=== PATIENT | female | born 1955 | race Caucasian/White ===

== ENCOUNTER → 2016-12-12 | Outpatient (CLI) | payer BC ==
[2016-12-12 13:23] LABS: ALT 29 U/L (9-52); AST 22 U/L (14-36); Alkaline Phosphatase 74 U/L (38-126); Anion Gap 11 mmol/L; Blood Urea Nitrogen 25 mg/dL (7-17); CH 31.7; CHCM 34.6; Calcium 9.6 mg/dL (8.4-10.2); Carbon Dioxide 31 mmol/L (22-30); Chloride 102 mmol/L (98-107); Cholesterol 217 mg/dL (<200); Glucose 96 mg/dL (74-99); HCT 40.5 % (34.0-46.0); HDL Cholesterol 61 mg/dL (40-60); HDW 2.54; HGB 13.7 gm/dL (11.4-16.0); MCH 31.2 pg (25.0-35.0); MCHC 33.8 g/dL (31.0-37.0); MCV 92.1 fL (80.0-100.0); Mean Platelet Volume 7.8; Non-African American GFR(MDRD) >60 (>60 ml/min/1.73 sqM); Potassium 4.2 mmol/L (3.5-5.1); RDW 12.4 % (11.5-15.5); Sodium 144 mmol/L (137-145); Total Bilirubin 0.7 mg/dL (0.2-1.3); Total Protein 7.1 g/dL (6.3-8.2); Triglycerides 72 mg/dL (<150)
[2016-12-12 14:10] LABS: Hepatitis C Virus IgG Index 0.01
[2016-12-12 14:11] LABS: Hepatitis C Virus IgG Ab Negative (Negative)
== END | disposition home or self-care (01) ==
LOC: LABWHC1 12:40
PROVIDERS: ATTEND Family Medicine
DX: I10 Essential (primary) hypertension (principal); E03.9 Hypothyroidism, unspecified; Z13.9 Encounter for screening, unspecified; E55.9 Vitamin D deficiency, unspecified
CPT/HCPCS: 36415; 80053; 80061; 82306; 84439; 84443; 84481; 85027; 86803

== ENCOUNTER → 2017-12-12 | Outpatient (CLI) | payer BC ==
--- NOTE | 2017-12-13 08:11 | MM ---
Reason for exam: clinical finding. Last mammogram was performed 1 year and 5 months ago. History: Patient is postmenopausal and is nulliparous. Took hormonal contraceptives for 8 years beginning at age 18. Physical Findings: Nurse did not find any significant physical abnormalities on exam. MG 3D Diag Mammo W/Cad RUTH Bilateral CC and MLO view(s) were taken. Prior study comparison: July 14, 2016, bilateral MG screening mammo w CAD. September 09, 2014, bilateral MG screening mammo w CAD. There are scattered fibroglandular densities. No significant new findings when compared with previous films. These results were verbally communicated with the patient and result sheet given to the patient on 12/12/17. ASSESSMENT: Negative, BI-RAD 1 RECOMMENDATION: Routine screening mammogram of both breasts in 1 year.
== END | disposition home or self-care (01) ==
LOC: RADMAMWWP 15:29
PROVIDERS: ATTEND Family Medicine
DX: N63.21 Unspecified lump in the left breast, upper outer quadrant (principal)
CPT/HCPCS: 77066; G0279

== ENCOUNTER → 2018-01-17 | Outpatient (CLI) | payer BC ==
[2018-01-17 13:00] LABS: HCT 40.6 % (34.0-46.0); HGB 13.5 gm/dL (11.4-16.0); MCH 30.3 pg (25.0-35.0); MCHC 33.4 g/dL (31.0-37.0); MCV 90.9 fL (80.0-100.0); Mean Platelet Volume 7.8; Platelet Count 248 k/uL (150-450); RBC 4.46 m/uL (3.80-5.40); RDW 12.8 % (11.5-15.5); WBC 7.8 k/uL (3.8-10.6)
[2018-01-17 13:06] LABS: Albumin 4.2 g/dL (3.5-5.0); Calcium 9.8 mg/dL (8.4-10.2); Potassium 3.9 mmol/L (3.5-5.1); Total Bilirubin 0.5 mg/dL (0.2-1.3); Total Protein 6.9 g/dL (6.3-8.2)
[2018-01-17 13:21] LABS: T4, Free (Free Thyroxine) 1.09 ng/dL (0.78-2.19)
== END | disposition home or self-care (01) ==
LOC: LABWHC1 11:42
PROVIDERS: ATTEND Family Medicine
DX: Z00.00 Encounter for general adult medical examination without abnormal findings (principal); E55.9 Vitamin D deficiency, unspecified; E03.9 Hypothyroidism, unspecified
CPT/HCPCS: 36415; 80053; 80061; 82306; 84439; 84443; 84481; 85027

== ENCOUNTER → 2019-10-07 | Outpatient (CLI) | payer BC ==
[2019-10-07 15:52] LABS: HCT 40.7 % (34.0-46.0); HGB 13.6 gm/dL (11.4-16.0); MCH 31.3 pg (25.0-35.0); MCHC 33.5 g/dL (31.0-37.0); MCV 93.5 fL (80.0-100.0); Mean Platelet Volume 7.6; Platelet Count 225 k/uL (150-450); RBC 4.35 m/uL (3.80-5.40); RDW 12.6 % (11.5-15.5)
[2019-10-07 15:55] LABS: Appearance,Urine Clear (Clear); Bilirubin,Urine Negative (Negative); Blood,Urine Negative (Negative); Color,Urine Yellow; Glucose,Urine (UA) Negative (Negative); Ketones,Urine Negative (Negative); Leukocyte Esterase,Urine Large (Negative); Mucus,Urine Occasional /hpf; Nitrite,Urine Negative (Negative); PH, Urine 5.5 (5.0-8.0); Protein,Urine Negative (Negative); RBC,Urine <1 /hpf (0-5); Specific Gravity,Urine 1.025 (1.001-1.035); Squamous Epithelial Cell,Urine 3 /hpf (0-4); Urobilinogen,Urine <2.0 mg/dL (<2.0); WBC,Urine 2 /hpf (0-5)
[2019-10-08 01:51] LABS: African American GFR (CKD) 78.3 (60.0-200.0); Albumin 4.2 g/dL (3.80-4.90); Albumin/Globulin Ratio 2.1 (1.60-3.17); Anion Gap 5.9 mmol/L (4.00-12.00); BUN/Creat Ratio 16.67 Ratio (12.00-20.00); Calcium 9.4 mg/dL (8.7-10.3); Carbon Dioxide 28.1 mmol/L (21.6-31.8); Chol/HDL Ratio 4.72; LDL Cholesterol,Calculated 175.6 mg/dL (0.0-131.0); Non-African American GFR(CKD) 67.6 (60.0-200.0); Potassium 4.3 mmol/L (3.5-5.5); Total Bilirubin 0.5 mg/dL (0.3-1.2); Total Protein 6.2 g/dL (6.2-8.2); VLDL Calculation 21.4 mg/dL (5.00-40.00)
[2019-10-08 01:59] LABS: T4, Free (Free Thyroxine) 1.2 ng/dL (0.80-1.80)
== END | disposition home or self-care (01) ==
LOC: LABWHC1 15:12
PROVIDERS: ATTEND Family Medicine
DX: Z00.00 Encounter for general adult medical examination without abnormal findings (principal); E03.9 Hypothyroidism, unspecified
CPT/HCPCS: 36415; 80053; 80061; 81001; 84439; 84443; 84481; 85027

== ENCOUNTER → 2020-08-03 | Outpatient (CLI) | payer BC ==
[2020-08-03 16:17] LABS: HCT 40.7 % (34.0-46.0); HGB 13.4 gm/dL (11.4-16.0); MCH 30.8 pg (25.0-35.0); MCHC 32.9 g/dL (31.0-37.0); MCV 93.6 fL (80.0-100.0); Mean Platelet Volume 7.7; Platelet Count 240 k/uL (150-450); RBC 4.35 m/uL (3.80-5.40); RDW 13.3 % (11.5-15.5); WBC 9.9 k/uL (3.8-10.6)
[2020-08-04 02:15] LABS: African American GFR (CKD) 77.8 (60.0-200.0); Albumin 4.4 g/dL (3.80-4.90); Albumin/Globulin Ratio 1.83 (1.60-3.17); Anion Gap 8.7 mmol/L (4.00-12.00); BUN/Creat Ratio 18.89 Ratio (12.00-20.00); Calcium 9.6 mg/dL (8.7-10.3); Carbon Dioxide 28.3 mmol/L (21.6-31.8); Chol/HDL Ratio 4.76; Globulin 2.4 g/dL (1.6-3.3); LDL Cholesterol,Calculated 172.2 mg/dL (0.0-131.0); Non-African American GFR(CKD) 67.1 (60.0-200.0); Potassium 4.7 mmol/L (3.5-5.5); Total Bilirubin 0.4 mg/dL (0.3-1.2); Total Protein 6.8 g/dL (6.2-8.2); VLDL Calculation 19.8 mg/dL (5.00-40.00)
== END | disposition home or self-care (01) ==
LOC: LABWHC1 15:39
PROVIDERS: ATTEND Family Medicine
DX: Z00.00 Encounter for general adult medical examination without abnormal findings (principal); E03.9 Hypothyroidism, unspecified
CPT/HCPCS: 36415; 80053; 80061; 84439; 84443; 84481; 85027

== ENCOUNTER 2021-03-24 | Emergency (ER) | payer BC | END 2021-03-24 14:57 | disposition home or self-care (01) | CPT/HCPCS: 36415; 71046; 80053; 83735; 84484; 85025; 85610; 85730; 93005; 99285 ==

== ENCOUNTER → 2021-12-17 | Outpatient (CLI) | payer BC ==
[2021-12-17 23:17] LABS: ALT 17 U/L (8-44); AST 18 U/L (13-35); African American GFR (CKD) 72.3 (60.0-200.0); Albumin/Globulin Ratio 1.61 (1.60-3.17); Alkaline Phosphatase 101 U/L (41-126); BUN/Creat Ratio 13.68 Ratio (12.00-20.00); Calcium 9.3 mg/dL (8.7-10.3); Chloride 104 mmol/L (96-109); Globulin 2.5 g/dL (1.6-3.3); Glucose 102 mg/dL (70-110); LDL Cholesterol,Calculated 183.9 mg/dL (0.0-131.0); Non-African American GFR(CKD) 62.4 (60.0-200.0); Potassium 3.8 mmol/L (3.5-5.5); Sodium 142 mmol/L (135-145); Total Protein 6.5 g/dL (6.2-8.2)
[2021-12-17 23:46] LABS: Basophils # (A) 0.04 X 10*3/uL (0.00-0.10); Basophils % (A) 0.6 %; Eosinophils # (A) 0.17 X 10*3/uL (0.04-0.35); Eosinophils % (A) 2.4 %; HCT 42.6 % (37.2-46.3); HGB 13.7 g/dL (12.0-15.0); Immature Grans, Automated 0.4 %; Lymphocytes # (A) 1.92 X 10*3/uL (0.90-5.00); Lymphocytes % (A) 27.6 %; MCH 29.9 pg (27.0-32.0); MCHC 32.2 g/dL (32.0-37.0); Mean Platelet Volume 11.1 fL (9.5-12.2); Monocytes # (A) 0.61 X 10*3/uL (0.20-1.00); Monocytes % (A) 8.8 %; NRBC Per 100 WBC 0 /100 WBCS (0.0-0.0); Neutrophils # (A) 4.19 X 10*3/uL (1.80-7.70); Neutrophils % (A) 60.2 %; Platelet Count 262 X 10*3/uL (140-440); RBC 4.58 X 10*6/uL (4.10-5.20); RDW 12.7 % (11.5-14.5); WBC 6.96 X 10*3/uL (4.50-10.00)
== END | disposition home or self-care (01) ==
LOC: LABWHC1 14:57
PROVIDERS: ATTEND Family Medicine
DX: I10 Essential (primary) hypertension (principal); E78.2 Mixed hyperlipidemia; E03.9 Hypothyroidism, unspecified
CPT/HCPCS: 36415; 80053; 80061; 84439; 84443; 84481; 85025

== ENCOUNTER → 2022-06-24 | Outpatient (CLI) | payer BC ==
--- NOTE | 2022-06-25 18:34 | CT ---
EXAMINATION TYPE: CT angio head CT DLP: 1658.4 mGycm, Automated exposure control for dose reduction was used. DATE OF EXAM: 06/24/2022 5:15 PM COMPARISON: None. CLINICAL INDICATION:Female, 67 years old with history of R51.9 HEADACHE, UNSPECIFIED; TECHNIQUE: Axially acquired helical CT angiogram of the head and neck was obtained with contrast util izing 100 cc of Isovue-370 administered intravenously. Axial images are supplemented with 3D reconstr uctions which were post-processed at an independent workstation. NASCET criteria used. FINDINGS: No evidence of acute intracranial hemorrhage, mass effect, or midline shift. The ventricles, sulci, a nd cisterns are unremarkable. The visualized portions of the internal carotid arteries, middle cerebral arteries, anterior cerebral arteries, and posterior cerebral arteries are patent. The basilar and vertebral arteries are patent. 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 Mild mucosal thickening most pronounced in the right m axillary sinus. IMPRESSION: No evidence of high-grade stenosis or intracranial aneurysm.
== END | disposition home or self-care (01) ==
LOC: RADCTMAIN 14:15
PROVIDERS: ATTEND Family Medicine
DX: R51.9 Headache, unspecified (principal)
CPT/HCPCS: 82565; 84520; 70496; 36415; Q9967

== ENCOUNTER → 2022-12-15 | Outpatient (CLI) | payer BC ==
--- NOTE | 2022-12-16 08:23 | MM ---
Reason for Exam: Screening (asymptomatic). Last mammogram was performed 3 year(s) and 1 month(s) ago. Patient History: Menarche at age 10. Patient has no children. Left ovary removed at age 52. Right ovary removed at age 52. Hysterectomy at age 52. Postmenopausal. Hormonal Contraceptives, starting at age 18 for 8 years. Risk Values: Teresa 5 year model risk: 2.1%. NCI Lifetime model risk: 7.0%. Prior Study Comparison: 07/14/2016 Bilateral Screening Mammogram, [facility]. 12/12/2017 Bilateral Diagnostic Mammogram, [facility]. 11/06/2019 Bilateral Screening Mammogram, [facility]. Tissue Density: The breast tissue is heterogeneously dense. This may lower the sensitivity of mammography. Findings: Analyzed By CAD. There is no suspicious group of microcalcifications or new suspicious mass in either breast. Overall Assessment: Negative, BI-RAD 1 Management: Screening Mammogram of both breasts in 1 year. A clinical breast exam by your physician is recommended on an annual basis and results should be correlated with mammographic findings. Electronically signed and approved by: Migel Rodriguez M.D.
== END | disposition home or self-care (01) ==
LOC: RADMAMWWP 16:55
PROVIDERS: ATTEND Family Medicine
DX: Z12.31 Encounter for screening mammogram for malignant neoplasm of breast (principal); Z78.0 Asymptomatic menopausal state
CPT/HCPCS: 77063; 77067

== ENCOUNTER → 2023-08-17 | Outpatient (CLI) | payer BC ==
--- NOTE | 2023-08-17 15:37 | P.SLEEP ---
History of Present Illness DATE: 08/17/2023 CONSULTATION/NEW PATIENT EVALUATION HISTORY OF PRESENT ILLNESS/SLEEP-WAKE EVALUATION: 68-year-old lady sleepiness and had been evaluated in the sleep center for sleepiness and possible obstructive sleep apnea hypopnea syndrome. SLEEP SCHEDULE: Usually sleep schedule from 4 AM to 12 noon. FALLING ASLEEP: Usually no significant problems with falling asleep. DURING SLEEP: Patient possibly snores. Presently she sleeps by herself. Patient wakes up from sleep 3 times with nocturia, dry mouth and open mouth. No history of hypnogogical hallucinations, sleep paralysis, or cataplexy. DURING THE DAY/WAKE STATE: In the morning patient wake up tired, falling asleep during the day.. Malden sleepiness scale is in extremely high range of 19. Patient may take several naps during the day. PAST MEDICAL HISTORY: Hypertension, depression, hypothyroidism. PAST SURGICAL HISTORY: Total hysterectomy. MEDICATIONS: Levothyroxine 75 g once a day, sertraline 100 mg once a day, hydrochlorothiazide 50 mg once a day, vitamin D supplement. SOCIAL HISTORY: Negative for smoking, alcohol consumption occasional. FAMILY HISTORY: Mostly negative. REVIEW OF SYSTEMS: Multiple awakenings from sleep, sleepiness during the day. No fevers. No double vision. No recent chest pain. No shortness of breath. No abdominal pain. No bleeding episodes. No blood in urine. No seizure episodes. PHYSICAL EXAMINATION: GENERAL: A pleasant patient without any distress. VITAL SIGNS: BP 154/94, HR 76, RR 16, weight 194.4 pounds, height 5 foot to inches, body mass index 35.4. HEENT: PERRLA, EOMI. Evaluation of oropharynx showed tongue protrudes midline, low position of soft palate Mallampati 3. NECK: Supple. No JVD. Thyroid is not palpable. 15-1/4 inches in circumference. LUNGS: Clear to percussion and to auscultation. Good air exchange. No wheezing or rhonchi. HEART: S1, S2 regular. No murmurs, gallops or rubs. ABDOMEN: Soft and nontender. Bowel sounds are present. No organomegaly appreciated. EXTREMITIES: No clubbing or cyanosis. FINANCIAL ENGINEER: Awake, alert, and oriented x3. Cranial nerves 2 to 7 intact. There is no fasciculation or atrophy noted. No focal deficits observed. ASSESSMENT: 1. Multiple awakenings from sleep with nocturia, low position of soft palate Mallampati 3, sleepiness. Possible obstructive sleep apnea hypopnea syndrome. 2. Significant excessive daytime sleepiness with Malden Sleepiness Scale of 19 dictated necessity to include hypersomnia and narcolepsy and differential diagnosis. 3. Obesity, BMI 35.4. 4. Hypertension. 5 hypothyroidism. 6 . History of depression. 7. Status post total hysterectomy. PLAN: 1. Home sleep apnea test for evaluation of patient's breathing during sleep. 2. Following plan after reading sleep test. If sleep study will be negative for obstructive sleep apnea hypopnea syndrome patient will need multiple sleep latency test for objective for ablation of her sleepiness at the present time 3. Preferable position during sleep on the side. 4. No driving if patient feels any sleepiness. Patient is aware of civil and criminal liability for unsafe driving. 5. Sleep hygiene with regular sleep time for at least 7.5-8 hours. 6. Watching weight. Thank you very much for referring this patient for consultation. Sincerely, Wally Bruner MD, PhD, FAASM. Diplomat of [place] [employer], Sleep Medicine Board by [place] [employer] [place] [employer] Fire Prevention Inspector of [facility] [place] Past Medical History Past Medical History: Hypertension History of Any Multi-Drug Resistant Organisms: None Reported Past Surgical History: Hysterectomy, Orthopedic Surgery Additional Past Surgical History / Comment(s): Plate in neck Past Anesthesia/Blood Transfusion Reactions: Previous Problems w/ Anesthesia, Postoperative Nausea & Vomiting (PONV) Past Psychological History: No Psychological Hx Reported Smoking Status: Never smoker Past Alcohol Use History: Rare Past Drug Use History: None Reported - Past Family History Father History Unknown: Yes Mother History Unknown: Yes Medications and Allergies Home Medications Medication Instructions Recorded Confirmed Type buPROPion HCL [Wellbutrin XL] 300 mg PO DAILY 03/23/16 03/24/21 History hydroCHLOROthiazide [Hydrodiuril] 50 mg PO DAILY 03/23/16 03/24/21 History Levothyroxine Sodium [Synthroid] 75 mcg PO DAILY 03/24/21 03/24/21 History Sertraline HCl [Zoloft] 100 mg PO DAILY 03/24/21 03/24/21 History Allergies Allergy/AdvReac Type Severity Reaction Status Date / Time codeine Allergy Itching Verified 03/24/21 10:10 Penicillins Allergy Rash/Hives Verified 03/24/21 10:10 Sleep Note - Sleep Note Sleep Note: Temperature: Pulse Rate: Respiratory Rate: Blood Pressure: SpO2: Height: Weight: BMI: Neck Circumference:
== END ==
LOC: 3 N SLEEP 14:04
PROVIDERS: ATTEND Internal Medicine
DX: G47.23 Circadian rhythm sleep disorder, irregular sleep wake type (principal); E66.9 Obesity, unspecified; I10 Essential (primary) hypertension; E03.9 Hypothyroidism, unspecified; F32.A Depression, unspecified; Z90.710 Acquired absence of both cervix and uterus; Z68.35 Body mass index [BMI] 35.0-35.9, adult; Z79.890 Hormone replacement therapy; Z88.5 Allergy status to narcotic agent; Z88.0 Allergy status to penicillin
CPT/HCPCS: 99211

== ENCOUNTER → 2023-09-01 | Outpatient (CLI) | payer BC ==
--- NOTE | 2023-09-04 17:34 | P.PCN ---
Description of Procedure: CLINICAL: A home sleep apnea test has been done for confirmation of possible obstructive sleep apnea-hypopnea syndrome. DESCRIPTION OF PROCEDURE: RESULTS: Recording time was 8 hours 58 minutes. Evaluation time was 8hours 44 minutes. Evaluation time is sufficient for making conclusion about results of the test. Raw data of sleep recording has been reviewed and is adequate. Respiratory channel showed 47 apneas and 308 hypopneas. Apnea-hypopnea index was 40.6 per hour. Pulse rate in the range between minimum 51, maximum 81, average 57 by computer calculation. Lowest desaturation was 68%. IMPRESSION: 1. Severe Obstructive Sleep Apnea Hypopnea Syndrome with severe oxygen desaturation. Please see other impressions from consultation. PLAN: 1. The patient should have PAP titration for correction of respiratory abnormallities during sleep. 2. I will see patient for follow up visit to discuss results of the test, evaluate clinical response on treatment with PAP therapy and make any necessary adjustments related to mask fitting, pressure, and humidification. 3. Watching and losing weight. 4. Sleep hygiene with regular time in bed for at least 8 hours. 5. No driving if feeling any sleepiness. Thank you very much for allowing me to participate in the management of your patient. Sincerely, Wally Bruner MD, PhD, FAASM Diplomat of [place] [employer] Sleep Medicine Board of [place] [employer] Childcare Aide of [facility] [place]
== END ==
LOC: 3 N SLEEP 13:54
PROVIDERS: ATTEND Internal Medicine
DX: G47.33 Obstructive sleep apnea (adult) (pediatric) (principal); G47.36 Sleep related hypoventilation in conditions classified elsewhere; Z88.5 Allergy status to narcotic agent; Z88.0 Allergy status to penicillin

== ENCOUNTER 2023-10-25 19:46 | Outpatient (CLI) | payer BC ==
--- NOTE | 2023-10-26 16:13 | P.PCN ---
Description of Procedure: CLINICAL: Titration with positive air pressure has been done for correction of respiratory abnormalities during sleep. DESCRIPTION OF PROCEDURE: The standard montage for clinical polysomnography included the electroencephalogram, the electrocardiogram, the mentalis surface electromyography and Lead II cardiography. The respiratory battery consisted of measurements of nasal /buccal air flow, pressure transducer measurements from the nose, thoracic and /or abdominal effort and intercostal surface electromyography. Video monitoring has been done to check for any parasomnia events. Nocturnal oxyhemoglobin saturations were obtained by finger oximetry. Step-mclean titration with positive airway pressure was utilized to control respiratory events. Raw data of sleep recording has been reviewed and is adequate. RESULTS: Sleep efficiency was decreased to 78.7 %. Latency to sleep onset was significantly prolonged to 43.0 minutes.]. Sleep architecture showed stage N1 was short 4.8 %, Delta sleep was absent 0 %, REM sleep was normal 25.2 %. Heart rate was minimum 62 BPM, maximum 74 BPM, average 67 BPM. EMG showed 4.1 periodic limb movements per hour with 0.5 micriarousals per hour. PAP titration have been done with CPAP up to the pressure 13 cm H2O, then patient was switched to BPAP. BPAP titrated up to 17/13 cm H2O. The best results were at the pressure 13 cm H2O. Apnea hypopnea index reduced to 16.6. IMPRESSION: 1. Severe Obstructive sleep apnea hypopnea syndrome apnea-hypopnea index 40.6 improved, but not fully normalized with PAP treatment. 2. No significant periodic limb movements have been documented. Please see other impressions from consultation. PLAN: 1. The patient will have treatment with positive air pressure equipment with the level of pressure AutoPAP 5-15 cm H2O and should use it every night for the whole night. 2. Watching weight. 3. Sleep hygiene with regular time in bed for at least 8 hours. 4. No driving if feeling any sleepiness. 5. I will see the patient for follow up visit to explain the results of the test, recommendations, check compliance with treatment and make any necessary adjustment related to mask fitting, pressure and humidification. During his next response Thank you very much for allowing me to participate in the management of your patient. Sincerely, Wally Bruner MD, PhD, FAASM Diplomat of [place] [employer] Specialties Sleep Medicine Board of [place] Board of Internal Medicine Pharmacist In Charge Owner of [facility] [place]
== END 2023-10-26 05:50 | disposition home or self-care (01) ==
LOC: 3 N SLEEP 19:46
PROVIDERS: ATTEND Internal Medicine
DX: G47.33 Obstructive sleep apnea (adult) (pediatric) (principal); G47.419 Narcolepsy without cataplexy; G47.10 Hypersomnia, unspecified; Z88.0 Allergy status to penicillin; Z88.5 Allergy status to narcotic agent
CPT/HCPCS: 95811

== ENCOUNTER 2023-11-19 16:48 | Inpatient (IN) | payer BC ==
--- NOTE | 2023-11-19 17:01 | ED ---
General Adult HPI - General Source: RN notes reviewed, old records reviewed - History of Present Illness -: days(s) Location: chest Radiation: non-radiation Severity scale (1-10): 3 Consistency: constant Improves with: none Worsens with: none Associated Symptoms: nausea/vomiting, weakness Treatments Prior to Arrival: none <Osvaldo Mancia - Last Filed: 11/19/23 20:26> - General Source: patient Mode of arrival: ambulatory Limitations: no limitations <Tanya Isaac - Last Filed: 11/19/23 22:50> - General Stated complaint: dizziness Time Seen by Provider: 11/19/23 17:00 - History of Present Illness Initial comments: This is a 68-year-old female to the ER for evaluation of sudden onset of dizziness and room spinning off balance. Patient is difficulty maintaining her balance especially with ambulation. No headache chest pain shortness of breath abdominal pain no other complaints no recent change in medications (Osvaldo Mancia) 68-year-old female presenting with chief complaint of dizziness. Started around 45 minutes prior to arrival. She admits to a mild headache. No chest pain or difficulty breathing. No URI-like symptoms. (Tanya Isaac) - Related Data Home Medications Medication Instructions Recorded Confirmed hydroCHLOROthiazide [Hydrodiuril] 50 mg PO DAILY 03/23/16 11/19/23 Sertraline HCl [Zoloft] 150 mg PO DAILY 03/24/21 11/19/23 Levothyroxine Sodium [Synthroid] 75 mcg PO DAILY 11/19/23 11/19/23 Allergies Allergy/AdvReac Type Severity Reaction Status Date / Time codeine Allergy Itching Verified 11/19/23 21:53 Penicillins Allergy skin Verified 11/19/23 21:53 peeling, painful rash Review of Systems ROS Other: All systems not noted in ROS Statement are negative. <Osvaldo Mancia - Last Filed: 11/19/23 20:26> ROS Other: All systems not noted in ROS Statement are negative. <Tanya Isaac - Last Filed: 11/19/23 22:50> ROS Statement: Those systems with pertinent positive or pertinent negative responses have been documented in the HPI. Past Medical History Past Medical History: Hypertension History of Any Multi-Drug Resistant Organisms: None Reported Past Surgical History: Hysterectomy, Orthopedic Surgery Additional Past Surgical History / Comment(s): Plate in neck Past Anesthesia/Blood Transfusion Reactions: Previous Problems w/ Anesthesia, Postoperative Nausea & Vomiting (PONV) Past Psychological History: No Psychological Hx Reported Smoking Status: Never smoker Past Alcohol Use History: Rare Past Drug Use History: None Reported - Past Family History Father History Unknown: Yes Mother History Unknown: Yes <Tanya Isaac - Last Filed: 11/19/23 22:50> General Exam General appearance: alert, in no apparent distress Head exam: Present: atraumatic, normocephalic, normal inspection Eye exam: Present: normal appearance, PERRL, EOMI. Absent: scleral icterus, conjunctival injection, periorbital swelling ENT exam: Present: normal exam, mucous membranes moist Neck exam: Present: normal inspection. Absent: tenderness, meningismus, lymphadenopathy Respiratory exam: Present: normal lung sounds bilaterally. Absent: respiratory distress, wheezes, rales, rhonchi, stridor Cardiovascular Exam: Present: regular rate, normal rhythm, normal heart sounds. Absent: systolic murmur, diastolic murmur, rubs, gallop, clicks GI/Abdominal exam: Present: soft, normal bowel sounds. Absent: distended, tenderness, guarding, rebound, rigid Extremities exam: Present: normal inspection, full ROM, normal capillary refill. Absent: tenderness, pedal edema, joint swelling, calf tenderness Back exam: Present: normal inspection Neurological exam: Present: alert, oriented X3, CN II-XII intact Psychiatric exam: Present: normal affect, normal mood Skin exam: Present: warm, dry, intact, normal color. Absent: rash <Osvaldo Mancia - Last Filed: 11/19/23 20:26> <Tanya Isaac - Last Filed: 11/19/23 22:50> - General Exam Comments Initial Comments: Visual Physical Exam Vital signs reviewed General: Well-appearing, nontoxic, no acute distress. Head: Normocephalic, atraumatic Eyes: PERRLA, EOMI ENT: Airway patent Chest: Nonlabored breathing Skin: No visual rash, normal skin tone Neuro: Alert and oriented 3 Musculoskeletal: No gross abnormalities (Tanya Isaac) Course <Osvaldo Mancia - Last Filed: 11/19/23 20:26> Vital Signs 11/19/23 11/19/23 11/19/23 17:30 20:12 21:00 Temperature 99.1 F 98.9 F Pulse Rate 66 69 66 Respiratory 18 16 18 Rate Blood Pressure 123/81 137/83 125/77 O2 Sat by Pulse 96 98 95 Oximetry - Reevaluation(s) Reevaluation #1: 11/19/23 18:53 Medical records reviewed (Osvaldo Mancia) Reevaluation #2: 11/19/23 20:27 Patient has no improvement in symptoms here in the ER (Osvaldo Mancia) Reevaluation #3: 11/19/23 20:27 Patient informed of results and questions answered (Osvaldo Mancia) Reevaluation #4: Was pt. sent in by a medical professional or institution (BRIAN Germain, LANDSCAPE TECHNICIAN, urgent care, hospital, or prison...) When possible be specific @ -no Did you speak to anyone other than the patient for history (EMS, parent, family, police, friend...)? What history was obtained from this source @ -no Did you review nursing and triage notes (agree or disagree)? Why? @ -agree Are old charts reviewed (outside hosp., previous admission, EMS record, old EKG, old radiological studies, urgent care reports/EKG's, prison records)? Report findings @ -yes Differential Diagnosis (chest pain, altered mental status, abdominal pain women, abdominal pain men, vaginal bleeding, weakness, fever, dyspnea, syncope, headache, dizziness, GI bleed, back pain, seizure, CVA, palpatations, mental health, musculoskeletal)? @ -prior EKG interpreted by me (3pts min.). @ -yes X-rays interpreted by me (1pt min.). @ -yes negative for acute disease CT interpreted by me (1pt min.). @ -no U/S interpreted by me (1pt. min.). @ -no What testing was considered but not performed or refused? (CT, X-rays, U/S, labs)? Why? @ -none What meds were considered but not given or refused? Why? @ -none Did you discuss the management of the patient with other professionals (professionals i.e. Dr., PA, LANDSCAPE TECHNICIAN, lab, RT, psych nurse, social media director, cell operation supervisor, teacher, chief green officer, lining caser)? Give summary @ -no Was smoking cessation discussed for >3mins.? @ -no Was critical care preformed (if so, how long)? @ -no Were there social determinants of health that impacted care today? How? (Homelessness, low income, unemployed, alcoholism, drug addiction, transportation, low edu. Level, literacy, decrease access to med. care, group home, rehab)? @ -none Was there de-escalation of care discussed even if they declined (Discuss DNR or withdrawal of care, Hospice)? DNR status @ -no What co-morbidities impacted this encounter? (DM, HTN, Smoking, COPD, CAD, Cancer, CVA, ARF, Chemo, Hep., AIDS, mental health diagnosis, sleep apnea, morbid obesity)? @ -none Was patient admitted / discharged? Hospital course, mention meds given and route, prescriptions, significant lab abnormalities, going to OR and other pertinent info. @ - Undiagnosed new problem with uncertain prognosis? @ -no Drug Therapy requiring intensive monitoring for toxicity (Heparin, Nitro, Insulin, Cardizem)? @ -no Were any procedures done? @ -no Diagnosis/symptom? @ - Acute, or Chronic, or Acute on Chronic? @ -Acute Uncomplicated (without systemic symptoms) or Complicated (systemic symptoms)? @ -Complicated Side effects of treatment? @ -no Exacerbation, Progression, or Severe Exacerbation? @ -exacerbation Poses a threat to life or bodily function? How? (Chest pain, USA, MT, pneumonia, PE, COPD, DKA, ARF, appy, cholecystitis, CVA, Diverticulitis, Homicidal, Suicidal, threat to staff... and all critical care pts) @ -yes (Osvaldo Mancia) Reevaluation #5: Differential Dizziness: Benign paroxysmal positional Vertigo, Menieres disease, otitis media, acoustic neuroma, vertebrobasilar insufficiency, cerebellar stroke, encephalitis, hypovolemic, arrhythmia, coronary artery syndrome, anemia, this is not meant to be an all-inclusive list (Osvaldo Mancia) - Consultations Consultation #1: Spoke with sound who agrees to admit this patient (Osvaldo Mancia) EKG Findings - EKG Comments: EKG Findings:: EKG is sinus 62 IN 165 QRS 76 QTc 412 - EKG Results: EKG: interpreted by ERMD <Osvaldo Mancia - Last Filed: 11/19/23 20:26> Medical Decision Making - Lab Data Result diagrams: 11/19/23 18:52 11/19/23 18:52 - EKG Data -: EKG Interpreted by Me - Radiology Data Radiology results: report reviewed (CT brain is negative for acute disease), image reviewed <Osvaldo Mancia - Last Filed: 11/19/23 20:26> - Lab Data Result diagrams: 11/19/23 18:52 11/19/23 18:52 <Tanya Isaac - Last Filed: 11/19/23 22:50> - Medical Decision Making 68 female with significant vertiginous symptoms off balance and ataxia. Patient remains ataxic here in the ER will admit for neurology evaluation (Osvaldo Mancia) I performed the quick note portion of this visit, electronically signed Tanya Isaac PA-C (Tanya Isaac) - Lab Data Lab Results 11/19/23 11/19/23 11/19/23 Range/Units 17:42 18:52 18:52 WBC 10.9 H (3.8-10.6) k/uL RBC 4.62 (3.80-5.40) m/uL Hgb 14.2 (11.4-16.0) gm/dL Hct 42.3 (34.0-46.0) % MCV 91.4 (80.0-100.0) fL MCH 30.6 (25.0-35.0) pg MCHC 33.5 (31.0-37.0) g/dL RDW 13.0 (11.5-15.5) % Plt Count 220 (150-450) k/uL MPV 8.0 Neutrophils % 77 % Lymphocytes % 13 % Monocytes % 6 % Eosinophils % 1 % Basophils % 1 % Neutrophils # 8.4 H (1.3-7.7) k/uL Lymphocytes # 1.4 (1.0-4.8) k/uL Monocytes # 0.7 (0-1.0) k/uL Eosinophils # 0.1 (0-0.7) k/uL Basophils # 0.1 (0-0.2) k/uL Sodium 143 (137-145) mmol/L Potassium 3.3 L (3.5-5.1) mmol/L Chloride 103 (98-107) mmol/L Carbon Dioxide 36 H (22-30) mmol/L Anion Gap 4 mmol/L BUN 15 (7-17) mg/dL Creatinine 0.74 (0.52-1.04) mg/dL Est GFR (CKD-EPI)AfAm >90 (>60 ml/min/1.73 sqM) Est GFR (CKD-EPI)NonAf 84 (>60 ml/min/1.73 sqM) Glucose 115 H (74-99) mg/dL POC Glucose (mg/dL) 155 H (70-110) mg/dL POC Glu Sole Stitcher Hand Reggie Malcolm Lactic Ac Sepsis Rflx Plasma Lactic Acid Kye (0.7-2.0) mmol/L Calcium 9.9 (8.4-10.2) mg/dL Phosphorus 3.7 (2.5-4.5) mg/dL Magnesium 2.0 (1.6-2.3) mg/dL Total Bilirubin 0.5 (0.2-1.3) mg/dL AST 27 (14-36) U/L ALT 24 (4-34) U/L Alkaline Phosphatase 89 (38-126) U/L Troponin I (0.000-0.034) ng/mL Total Protein 6.9 (6.3-8.2) g/dL Albumin 4.0 (3.5-5.0) g/dL 11/19/23 11/19/23 11/19/23 Range/Units 18:52 18:52 19:49 WBC (3.8-10.6) k/uL RBC (3.80-5.40) m/uL Hgb (11.4-16.0) gm/dL Hct (34.0-46.0) % MCV (80.0-100.0) fL MCH (25.0-35.0) pg MCHC (31.0-37.0) g/dL RDW (11.5-15.5) % Plt Count (150-450) k/uL MPV Neutrophils % % Lymphocytes % % Monocytes % % Eosinophils % % Basophils % % Neutrophils # (1.3-7.7) k/uL Lymphocytes # (1.0-4.8) k/uL Monocytes # (0-1.0) k/uL Eosinophils # (0-0.7) k/uL Basophils # (0-0.2) k/uL Sodium (137-145) mmol/L Potassium (3.5-5.1) mmol/L Chloride (98-107) mmol/L Carbon Dioxide (22-30) mmol/L Anion Gap mmol/L BUN (7-17) mg/dL Creatinine (0.52-1.04) mg/dL Est GFR (CKD-EPI)AfAm (>60 ml/min/1.73 sqM) Est GFR (CKD-EPI)NonAf (>60 ml/min/1.73 sqM) Glucose (74-99) mg/dL POC Glucose (mg/dL) (70-110) mg/dL POC Glu Sole Stitcher Hand ID Lactic Ac Sepsis Rflx Y Plasma Lactic Acid Kye 2.2 H* (0.7-2.0) mmol/L Calcium (8.4-10.2) mg/dL Phosphorus (2.5-4.5) mg/dL Magnesium (1.6-2.3) mg/dL Total Bilirubin (0.2-1.3) mg/dL AST (14-36) U/L ALT (4-34) U/L Alkaline Phosphatase (38-126) U/L Troponin I <0.012 (0.000-0.034) ng/mL Total Protein (6.3-8.2) g/dL Albumin (3.5-5.0) g/dL Disposition Is patient prescribed a controlled substance at d/c from ED?: No Time of Disposition: 20:30 <Osvaldo Mancia - Last Filed: 11/19/23 20:26> <Tanya Isaac - Last Filed: 11/19/23 22:50> Clinical Impression: Cerebrovascular accident (CVA), Vertigo Disposition: ADMITTED IP TO THIS HOSP Condition: Fair
[2023-11-19 17:43] LABS: Glucose,Whole Blood 155 mg/dL (70-110)
--- NOTE | 2023-11-19 18:36 | CT ---
EXAMINATION TYPE: CT brain wo con CT DLP: 1165.5 mGycm, Automated exposure control for dose reduction was used. DATE OF EXAM: 11/19/2023 6:13 PM COMPARISON: 06/24/2022. CLINICAL INDICATION:Female, 68 years old with history of dizziness, new onset dizziness TECHNIQUE: Brain: Axial CT images of the brain were obtained with coronal and sagittal reformats created and rev iewed. Contrast used: None. Oral contrast used: None. FINDINGS: Brain: Extra-axial spaces: No abnormal extra-axial fluid collections. Ventricular system: Within normal limits Cerebral parenchyma: No acute intraparenchymal hemorrhage or mass effect. The mojica-white junction is well differentiated. Cerebellum: Unremarkable. Mass effect: No evidence of midline shift. Intracranial vasculature: unremarkable Soft tissues: Normal. Calvarium/osseous structures: No depressed skull fracture. Paranasal sinuses and mastoid air cells: Mild scattered paranasal sinus disease. Visualized orbits: Orbital contents are intact. IMPRESSION: No acute intracranial process.
[2023-11-19 19:21] LABS: Basophils # (A) 0.1 k/uL (0-0.2); Basophils % (A) 1 %; Eosinophils # (A) 0.1 k/uL (0-0.7); Eosinophils % (A) 1 %; HCT 42.3 % (34.0-46.0); HGB 14.2 gm/dL (11.4-16.0); Lymphocytes # (A) 1.4 k/uL (1.0-4.8); Lymphocytes % (A) 13 %; MCH 30.6 pg (25.0-35.0); MCHC 33.5 g/dL (31.0-37.0); MCV 91.4 fL (80.0-100.0); Monocytes # (A) 0.7 k/uL (0-1.0); Monocytes % (A) 6 %; Neutrophils # (A) 8.4 k/uL (1.3-7.7); Neutrophils % (A) 77 %; Platelet Count 220 k/uL (150-450); RBC 4.62 m/uL (3.80-5.40); WBC 10.9 k/uL (3.8-10.6)
[2023-11-19] MEDS: ONDANSETRON 4 MG/2 ML VIAL IVP STA ×2 (19:26→19:29)
[2023-11-19] MEDS: diphenhydrAMINE 50 MG/ML 1 ML VIAL IVP STA (19:29)
[2023-11-19] MEDS: SODIUM CHLORIDE 0.9% 1,000 ML IV STA (19:29)
[2023-11-19 19:33] LABS: ALT 24 U/L (4-34); AST 27 U/L (14-36); African American GFR (CKD) >90 (>60 ml/min/1.73 sqM); Alkaline Phosphatase 89 U/L (38-126); Anion Gap 4 mmol/L; Blood Urea Nitrogen 15 mg/dL (7-17); Calcium 9.9 mg/dL (8.4-10.2); Carbon Dioxide 36 mmol/L (22-30); Chloride 103 mmol/L (98-107); Glucose 115 mg/dL (74-99); Non-African American GFR(CKD) 84 (>60 ml/min/1.73 sqM); Phosphorus 3.7 mg/dL (2.5-4.5); Potassium 3.3 mmol/L (3.5-5.1); Sodium 143 mmol/L (137-145); Total Bilirubin 0.5 mg/dL (0.2-1.3); Total Protein 6.9 g/dL (6.3-8.2)
[2023-11-19] MEDS: POTASSIUM BICARBONATE/CIT AC 20 MEQ TABLET.EFF PO ONE (20:11)
[2023-11-19] MEDS: SODIUM CHLORIDE 0.9% 1,000 ML IV SCH (20:37)
[2023-11-19] MEDS: ASPIRIN 325 MG TAB PO STA (20:39)
--- NOTE | 2023-11-19 21:09 | US ---
EXAMINATION TYPE: US carotid duplex BILAT DATE OF EXAM: 11/19/2023 COMPARISON: NONE CLINICAL INDICATION: Female, 68 years old with history of Stenosis; dizziness, no h/o stroke TECHNIQUE: Carotid duplex ultrasound examination. Indirect Doppler criteria was utilized. FINDINGS: EXAM MEASUREMENTS: RIGHT: Peak Systolic Velocity (PSV) cm/sec ----- Right CCA: 91.6 ----- Right ICA: 127.0 ----- Right ECA: 130.0 ICA/CCA ratio: 1.4 RIGHT: End Diastole cm/sec ----- Right CCA: 24.0 ----- Right ICA: 31.8 ----- Right ECA: 20.5 LEFT: Peak Systolic Velocity (PSV) cm/sec ----- Left CCA: 118.0 ----- Left ICA: 158.0 ----- Left ECA: 123.0 ICA/CCA ratio: 1.3 LEFT: End Diastole cm/sec ----- Left CCA: 35.7 ----- Left ICA: 54.9 ----- Left ECA: 18.9 VERTEBRALS (direction of flow): Right Vertebral: Antegrade Left Vertebral: Antegrade Rhythm: Normal CLOTH WASHER NOTES: Mild homogeneous plaque with no significant stenosis IMPRESSION: 50-69% stenosis of the bilateral carotid bifurcations by peak systolic velocity. Criteria for Assigning % of Stenosis / Diameter reduction (Estimation based on the indirect measurements of the internal carotid artery velocities (ICA PSV). 1. Normal (no stenosis)=ICA PSV < 125 cm/s: ratio < 2.0: ICA EDV<40 cm/s. 2. Less than 50% stenosis=ICA PSV < 125 cm/s: ratio < 2.0: ICA EDV<40 cm/s. 3. 50 to 69% stenosis=ICA PSV of 125 to 230 cm/s: ration 2.0 ? 4.0: ICA EDV 40-100 cm/s. 4. Greater than 70% stenosis to near occlusion= ICA PSV > 230 cm/s: ratio > 4.0: ICA EDV > 100 cm/s. 5. Near occlusion= ICA PSV velocities may be low or undetectable: variable ratio and ICA EDV. 6. Total occlusion=unable to detect flow.
--- NOTE | 2023-11-20 03:37 | P.HPIM ---
History of Present Illness H&P Date: 11/19/23 Chief Complaint: Vertigo 68-year-old female with hypertension Patient coming in for evaluation of vertigo and ataxia. 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 She denies any history of stroke or head injury denies any history of DVT. However she continued to lean to the left side when she walks and would feel dizzy when she gets up sometimes the room spinning improves with laying down denies any changes in her hearing denies any ringing sounds in her ears denies any nausea vomiting denies any headache denies any other focal neurodeficits. Patient denies tobacco smoking illicit drugs or heavy alcohol Patient denies any focal neurodeficits denies any weakness in her extremities or numbness or tingling Review of systems review of systems Pertinent positives as noted in HPI. All other systems were reviewed and are negative on exam Constitutional: No acute distress, conversant, pleasant Eyes: Anicteric sclerae, moist conjunctiva, Pupils equal round reactive to light ENMT: NC/AT Oropharynx clear, no erythema, or exudates Neck: Supple, no masses, or JVD No carotid bruits No thyromegaly Lungs: Clear to auscultation Clear to percussion Normal respiratory effort, no accessory muscle use Cardiovascular: Heart regular in rate and rhythm, No murmurs, gallops, or rubs No peripheral edema Abdominal: Soft Nontender, no guarding, rebound or rigidity Abdomen moving with respiration Normoactive bowel sounds Extremities: No digital cyanosis No clubbing Pedal pulses intact and symmetrical Radial pulses intact and symmetrical No calf tenderness Psychiatric: Alert and oriented to person, place and time Appropriate affect fair judgement Neuro Muscles Strength 5/5 in all 4 extremities Sensation to light touch grossly present throughout Cranial nerves II-XII grossly intact finger-nose exam intact heel franco exam intact Lymphatics: no palpable cervical or supraclavicular lymph nodes Past Medical History Past Medical History: Hypertension History of Any Multi-Drug Resistant Organisms: None Reported Past Surgical History: Hysterectomy, Orthopedic Surgery Additional Past Surgical History / Comment(s): Plate in neck Past Anesthesia/Blood Transfusion Reactions: Previous Problems w/ Anesthesia, Postoperative Nausea & Vomiting (PONV) Past Psychological History: No Psychological Hx Reported Smoking Status: Never smoker Past Alcohol Use History: Rare Past Drug Use History: None Reported - Past Family History Father History Unknown: Yes Mother History Unknown: Yes Medications and Allergies Home Medications Medication Instructions Recorded Confirmed Type hydroCHLOROthiazide [Hydrodiuril] 50 mg PO DAILY 03/23/16 11/19/23 History Sertraline HCl [Zoloft] 150 mg PO DAILY 03/24/21 11/19/23 History Levothyroxine Sodium [Synthroid] 75 mcg PO DAILY 11/19/23 11/19/23 History Allergies Allergy/AdvReac Type Severity Reaction Status Date / Time codeine Allergy Itching Verified 11/19/23 21:53 Penicillins Allergy skin Verified 11/19/23 21:53 peeling, painful rash Physical Exam Vitals: Vital Signs Temp Pulse Resp BP Pulse Ox 11/19/23 21:00 66 18 125/77 95 11/19/23 20:12 98.9 F 69 16 137/83 98 11/19/23 17:30 99.1 F 66 18 123/81 96 Intake and Output 11/19/23 11/19/23 11/20/23 14:59 22:59 06:59 Other: Weight 86.183 kg Results CBC & Chem 7: 11/19/23 18:52 11/19/23 18:52 Labs: Abnormal Lab Results - Last 24 Hours (Table) 11/19/23 11/19/23 11/19/23 Range/Units 17:42 18:52 18:52 WBC 10.9 H (3.8-10.6) k/uL Neutrophils # 8.4 H (1.3-7.7) k/uL Potassium 3.3 L (3.5-5.1) mmol/L Carbon Dioxide 36 H (22-30) mmol/L Glucose 115 H (74-99) mg/dL POC Glucose (mg/dL) 155 H (70-110) mg/dL Plasma Lactic Acid Kye (0.7-2.0) mmol/L 11/19/23 Range/Units 18:52 WBC (3.8-10.6) k/uL Neutrophils # (1.3-7.7) k/uL Potassium (3.5-5.1) mmol/L Carbon Dioxide (22-30) mmol/L Glucose (74-99) mg/dL POC Glucose (mg/dL) (70-110) mg/dL Plasma Lactic Acid Kye 2.2 H* (0.7-2.0) mmol/L Assessment and Plan Assessment: 68-year-old female with history of hypertension coming in for evaluation of ataxia and vertigo I discussed the case with ED doctor and accepted the admission for neurologic evaluation in the morning with anticipated length of stay less than 2 midnights Ataxia vertigo suspected secondary to underlying stroke Carotid Doppler showed 50 to 69% bilateral stenosis CT of the brain showed no acute intracranial pathology Continue with aspirin daily, continue with atorvastatin 40 mg p.o. daily IV Fluid hydration with normal saline 100 cc/h Tylenol as needed for fever Lactic acidosis 2.3 improved to 0.7 Check MRI of the brain Neurology consult Fall precautions PT evaluation Check echocardiogram in the morning Monitor vital signs closely Hypokalemia mild potassium 3.3 replace orally and check levels in the morning Renal function unremarkable BUN 15 creatinine 0.7 Hypothyroid Continue with levothyroxine 75 mcg daily Hypokalemia potassium 3.3 replace orally with K-Dur follow-up potassium level in the morning Full code DVT prophylaxis heparin subcu 3 times daily GI prophylaxis Protonix 40 mg p.o. daily
[2023-11-20] MEDS: LEVOTHYROXINE 75 MCG TAB PO SCH (10:38)
[2023-11-20] MEDS: SERTRALINE 50 MG TAB PO SCH (10:38)
[2023-11-20] MEDS: ATORVASTATIN 40 MG TAB PO SCH (10:38)
[2023-11-20] MEDS: ASPIRIN 325 MG TAB PO SCH (10:39)
[2023-11-20] MEDS: HEPARIN SODIUM,PORCINE 5,000 UNIT/ML 1 ML VIAL SQ SCH (10:39)
[2023-11-20 14:03] LABS: Chol/HDL Ratio 4.59 Ratio; LDL Cholesterol,Calculated 150.9 mg/dL (0.0-131.0)
[2023-11-20 15:43] LABS: Appearance,Urine Clear (Clear); Bilirubin,Urine Negative (Negative); Blood,Urine Negative (Negative); Color,Urine Colorless; Glucose,Urine (UA) Negative (Negative); Ketones,Urine Negative (Negative); Leukocyte Esterase,Urine Negative (Negative); Nitrite,Urine Negative (Negative); PH, Urine 5.5 (5.0-8.0); Protein,Urine Negative (Negative); Specific Gravity,Urine 1.016 (1.001-1.035); Urobilinogen,Urine <2.0 mg/dL (<2.0)
--- NOTE | 2023-11-20 16:06 | P.PN ---
Subjective Progress Note Date: 11/20/23 68 year old F with PMH of HTN, hypothyroidism and depression presents to the ED. She presents to the ED for evaluation of vertigo and ataxia that started at 4PM on Monday while bending over. In the ED patient underwent extensive evaluation. BP 123/81 HR 66 T 99.1F 96% on RA. CBC and CMP was done significant for WBC 10.9, K 3.3, bicarb 36, glu 115. Lactic acid 2.2. Tropoinin < 0.012. Mag 2.0. CT brain negative. EKG sinus rhythm. Patient was admitted for CVA workup and Neurology evaluation. 3/ Patient was seen and examined. She reports improved vertigo compared to admission. Repeat lactic acid is 0.7. Lipid panel T. Chol 229, LDL 150.9. Carotid doppler 50-69% bilateral stenosis carotid bifurcations. Reports L > R hearing loss due to her exposure to loud noises. Denies recent infections. General: non toxic, no distress, appears at stated age Derm: warm, dry Head: atraumatic, normocephalic, symmetric Eyes: EOMI, no lid lag, anicteric sclera Mouth: no lip lesion, mucus membranes moist Cardiovascular: good distal perfusion in all 4 extremities Lungs: breathing comfortably, no accessory muscle use Ext: no gross muscle atrophy, no edema, no contractures Neuro: no focal neuro deficits Psych: Alert, oriented, appropriate affect Based on my assessment of this patient, this patient meets a high complexity level of care. Patient has an acute diagnosis of vertigo and ataxia that poses a threat to life or bodily function. Vertigo and ataxia: Peripheral cause vs central cause. CVA workup initiated. CUS and Lipid panel as above. MRI brain ordered. MRA head and neck ordered to rule out vertebrobasilar insufficiency. Echo ordered. Telemetry monitoring. PT/OT/ST consult. ASA 81 mg PO QD. Lipitor 40 mg PO QD. Neurology consulted. Hypokalemia: KCl 40 meq PO x 1. Repeat tomorrow. Dyslipidemia: Lipitor as above. Resolved: Lactic acidosis CODE STATUS: FULL CODE DVT Prophylaxis: Heparin SQ GI Prophylaxis: Designated medical POA if patient is not able to make medical decisions for t hemselves: I have reviewed the following treasury management sales consultant notes: I have reviewed the results of the following tests: Carotid doppler. Lactic acid. Lipid panel. I have ordered the following tests: MRA head and neck. Echo and MRI brain pending. Objective - Vital Signs Vital signs: Vital Signs Temp 97.8 F 11/20/23 10:49 Pulse 58 L 11/20/23 12:00 Resp 20 11/20/23 12:00 BP 120/73 11/20/23 12:00 Pulse Ox 95 11/20/23 12:00 FiO2 Intake & Output 11/19/23 11/20/23 11/20/23 18:59 06:59 18:59 Weight 86.183 kg Other: # Voids 1 - Labs CBC & Chem 7: 11/19/23 18:52 11/19/23 18:52 Labs: Abnormal Lab Results - Last 24 Hours (Table) 11/19/23 11/19/23 11/19/23 Range/Units 17:42 18:52 18:52 WBC 10.9 H (3.8-10.6) k/uL Neutrophils # 8.4 H (1.3-7.7) k/uL Potassium 3.3 L (3.5-5.1) mmol/L Carbon Dioxide 36 H (22-30) mmol/L Glucose 115 H (74-99) mg/dL POC Glucose (mg/dL) 155 H (70-110) mg/dL Plasma Lactic Acid Kye (0.7-2.0) mmol/L Cholesterol (0.00-200.00) mg/dL LDL Cholesterol, Calc (0.0-131.0) mg/dL 11/19/23 11/19/23 Range/Units 18:52 18:52 WBC (3.8-10.6) k/uL Neutrophils # (1.3-7.7) k/uL Potassium (3.5-5.1) mmol/L Carbon Dioxide (22-30) mmol/L Glucose (74-99) mg/dL POC Glucose (mg/dL) (70-110) mg/dL Plasma Lactic Acid Kye 2.2 H* (0.7-2.0) mmol/L Cholesterol 229.00 H (0.00-200.00) mg/dL LDL Cholesterol, Calc 150.9 H (0.0-131.0) mg/dL
--- NOTE | 2023-11-20 18:53 | CA ---
Transthoracic Echo Report Name: Francesca Sousa Age: 68 Gender: F : 1955 Exam Date: 11/20/2023 11:19 Exam Location: [facility] Ht (in): 62 Wt (lb): 190 Ordering Physician: Osvaldo Mancia DO Attending/Referring Phys: [id number], Gavino Tie Tape Machine Operator Sam Faith RDCS Procedure CPT: Indications: Thrombus Cardiac Hx: Technical Quality: Contrast 1: Total Dose (mL): Contrast 2: Total Dose (mL): MEASUREMENTS (Male / Female) Normal Values 2D ECHO LV Diastolic Diameter PLAX 4.5 cm 4.2 - 5.9 / 3.9 - 5.3 cm LV Systolic Diameter PLAX 3.1 cm IVS Diastolic Thickness 1.3 cm 0.6 - 1.0 / 0.6 - 0.9 cm LVPW Diastolic Thickness 0.8 cm 0.6 - 1.0 / 0.6 - 0.9 cm LV Relative Wall Thickness 0.5 LVOT Diameter 1.8 cm Aortic Root Diameter 2.7 cm LA Systolic Diameter LX 3.4 cm 3.0 - 4.0 / 2.7 - 3.8 cm DOPPLER AV Peak Velocity 124.5 cm/s AV Peak Gradient 6.2 mmHg AV Mean Velocity 68.3 cm/s AV Mean Gradient 2.1 mmHg AV Velocity Time Integral 21.4 cm LVOT Peak Velocity 92.2 cm/s LVOT Peak Gradient 3.4 mmHg LVOT Velocity Time Integral 24.7 cm LVOT Stroke Volume 61.5 cm??? LVOT Stroke Volume Index 32.9 ml/m??? LVOT Cardiac Index 2049.5 cm???/min???m??? AV Area Cont Eq vti 2.9 cm??? AV Area Cont Eq pk 1.8 cm??? Mitral E Point Velocity 90.3 cm/s Mitral A Point Velocity 99.0 cm/s Mitral E to A Ratio 0.9 MV Deceleration Time 207.8 ms MV E' Velocity 12.8 cm/s Mitral E to MV E' Ratio 7.0 PV Peak Velocity 89.4 cm/s PV Peak Gradient 3.2 mmHg FINDINGS Left Ventricle Left ventricular ejection fraction is estimated at 55-60 %. Normal Left ventricular size, with no obvious regional wall motion abnormalities. Right Ventricle Normal right ventricular size. Right Atrium Normal right atrial size. Left Atrium Normal left atrial size. Mitral Valve Trace mitral regurgitation. Aortic Valve No aortic regurgitation. Tricuspid Valve Trace tricuspid regurgitation. Pulmonic Valve Trace pulmonic regurgitation. Pericardium No pericardial effusion. Aorta Normal size aortic root. CONCLUSIONS Normal LV systolic function No obvious intracardiac thrombus Consider transesophageal echo to definitively rule out intracardiac thrombus Previewed by: Dr. Yury Figueroa MD (Electronically Signed) Final Date: 20 November 2023 18:52
--- NOTE | 2023-11-21 08:24 | P.CNNES ---
History of Present Illness Consult date: 11/20/23 Requesting physician: Osvaldo Mancia Reason for Consult: CVA History of Present Illness: Patient is a 68-year-old right-handed female came to the hospital yesterday at 4:48 PM for episodes of dizziness/vertigo. 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 She has not been too far, but noticed dizziness. She straightened up and walk to her bedroom and laid down and everything started spinning. It lasted less than a minute. She has noticed that whenever she tips her head to the left side everything starts spinning. The same symptoms happens when she tips her head to the right but not as intense. Symptoms last for less than a minute each time. She has noticed when she tries to walk, she would tip to the left side. She denies any weakness in the legs, was able to walk without difficulty except for tipping to the left due to the symptoms, she decided to come to the ER. Patient denies any nausea vomiting, any diplopia, focal numbness tingling weakness, facial droop or slurred speech. Patient denies any recent history of upper respiratory infection, any head trauma or any previous history of vertigo or dizziness ever in the past. She does not take any aspirin on a regular basis. She did take 2 baby aspirin's before she came to the ER just to be on safe side. Patient has history of hypertension, denies diabetes, never smoked, drinks alcohol very occasionally. Patient has been noticing some fullness in the left ear. She admits to having some hearing loss related to work, left more than right. No tinnitus. At present, she has no vertigo, but feels dizzy, which occurs when she is coming back from the restroom and lays in the bed. Vital signs on arrival blood pressure 123/81 pulse rate 66 temperature 99.1. Blood test shows WBC 10.9 hemoglobin 14.2, platelets 220. Sodium is normal potassium 3.3, normal renal functions, normal hepatic panel. Lactate 2.2. Troponin negative. UA negative. EKG shows sinus rhythm. CT head showed no acute intracranial process. I personally reviewed CT head agree with the findi ngs. Patient had a CTA of head performed 06/24/2022, which revealed no evidence of high-grade stenosis or intracranial aneurysm. Home medication include HCTZ 50 mg, sertraline 150 mg, levothyroxine 75 mcg. Patient does not take any antiplatelet medication at home. Review of Systems Constitutional: Denies chills, Denies fever Eyes: denies blurred vision, denies diplopia, denies pain Ears: bilateral: decreased hearing (Left worse, work related), deny: earache, tinnitus Ears, nose, mouth and throat: Reports vertigo, Denies headache (Slight STAFFORD earlier, now gone), Denies sore throat Cardiovascular: Denies chest pain, Denies shortness of breath Respiratory: Denies cough, Denies excessive sputum Gastrointestinal: Denies abdominal pain, Denies diarrhea, Denies nausea, Denies vomiting Genitourinary: Denies dysuria, Denies stress incontinence Musculoskeletal: Denies low back pain, Denies myalgias, Denies neck pain Integumentary: Denies pruritus, Denies rash Neurological: Reports as per HPI Psychiatric: Denies anxiety, Denies depression Endocrine: Reports fatigue, Denies weight change Hematologic/Lymphatic: Denies easy bleeding, Denies easy bruising Past Medical History Past Medical History: Hypertension Additional Past Medical History / Comment(s): "HEART MURMUR." History of Any Multi-Drug Resistant Organisms: None Reported Past Surgical History: Hysterectomy, Orthopedic Surgery Additional Past Surgical History / Comment(s): Plate in neck Past Anesthesia/Blood Transfusion Reactions: Previous Problems w/ Anesthesia, Postoperative Nausea & Vomiting (PONV) Past Psychological History: No Psychological Hx Reported Smoking Status: Never smoker Past Alcohol Use History: Rare Past Drug Use History: None Reported - Past Family History Father History Unknown: Yes Mother History Unknown: Yes Sister(s) Additional Family Medical History / Comment(s): BRAIN ANEURISM. Medications and Allergies Home Medications Medication Instructions Recorded Confirmed Type hydroCHLOROthiazide [Hydrodiuril] 50 mg PO DAILY 03/23/16 11/19/23 History Sertraline HCl [Zoloft] 150 mg PO DAILY 03/24/21 11/19/23 History Levothyroxine Sodium [Synthroid] 75 mcg PO DAILY 11/19/23 11/19/23 History Allergies Allergy/AdvReac Type Severity Reaction Status Date / Time codeine Allergy Itching Verified 11/19/23 21:53 Penicillins Allergy skin Verified 11/19/23 21:53 peeling, painful rash Physical Examination - Vital Signs Vital Signs: Vital Signs Temp Pulse Pulse Resp BP BP Pulse Ox 11/20/23 16:00 97.8 F 67 20 126/73 95 11/20/23 12:00 58 L 20 120/73 95 11/20/23 10:49 97.8 F 57 L 20 152/80 11/20/23 05:13 97.8 F 66 16 135/82 97 11/20/23 00:30 60 18 112/99 96 11/19/23 21:00 66 18 125/77 95 11/19/23 20:12 98.9 F 69 16 137/83 98 Intake and Output 11/20/23 11/20/23 11/20/23 06:59 14:59 22:59 Other: # Voids 1 1 Weight 86.183 kg Patient is an elderly female, in no acute distress. Patient is alert awake oriented to time place and person. Speech and language functions are normal. Patient can name and repeat very well. No aphasia or dysarthria. Attention, concentration and fund of knowledge is adequate. On cranial nerve examination, pupils are equal, round and reacting to light, visual trejo are full on confrontation, with no neglect on double simultaneous stimulation. Extraocular muscles are intact with no nystagmus. Face is symme tric, tongue protrudes to the midline. Palatal elevation and sensation normal, hearing is moderate to severely decreased for finger rubbing bilaterally, left slightly worse, although hearing is fairly normal for routine conversation and shoulder shrug normal, facial sensation normal. Otologic examination reveals normal-appearing eardrums bilaterally, with no evidence of wax. On muscle strength testing, there is no pronator drift and the strength is normal in arms and legs distally and proximally. Deep tendon reflexes are (right/left) biceps 1+/2, brachioradialis 1+/2, knees 2/2, ankles 1/1 and plantars downgoing bilaterally. Sensory to touch is equal with no neglect on double simultaneous stimulation. Cerebellar function showed no ataxia for [id number] testing. No dysdiadochokinesia. No ataxia for [id number] testing on either side. Tone and bulk of muscles normal. Gait deferred.. On general examination, there is no carotid bruit or murmur, S1-S2 audible. Chest is clear on consultation. Abdomen is soft nontender. No organomegaly, bowel sounds present. Peripheral pulses are present. No peripheral edema. Results - Laboratory Findings CBC and BMP: 11/19/23 18:52 11/19/23 18:52 Abnormal Lab Findings: Abnormal Labs 11/19/23 11/19/23 11/19/23 17:42 18:52 18:52 WBC 10.9 H Neutrophils # 8.4 H Potassium 3.3 L Carbon Dioxide 36 H Glucose 115 H POC Glucose (mg/dL) 155 H Plasma Lactic Acid Kye Cholesterol LDL Cholesterol, Calc 11/19/23 11/19/23 18:52 18:52 WBC Neutrophils # Potassium Carbon Dioxide Glucose POC Glucose (mg/dL) Plasma Lactic Acid Kye 2.2 H* Cholesterol 229.00 H LDL Cholesterol, Calc 150.9 H Assessment and Plan Assessment: * Intermittent vertigo/dizziness, probable due to peripheral vestibular dysfunction. Probable BPPV. Patient has some fullness in the left ear, chronic mild hearing loss, likely contributing to peripheral vestibular dysfunction. Patient has no focal symptoms. Examination is nonfocal. * Hypertension * Hyperlipidemia * Lactic acidosis Plan: * Primary has initiated MRI of the brain without contrast, rule out any acute CVA * 2-D echo revealed normal left ventricular systolic function, with EF estimated at 55 to 60%. Normal left ventricular size with no obvious regional wall motion abnormalities. No obvious intracardiac thrombus. Normal left atrial s ize. Consider HAMMAD. * Carotid Doppler, revealed 50 to 69% stenosis of bilateral carotid bifurcations by peak systolic velocity. Antegrade flow in both vertebral arteries. * We will check CTA of head and neck to evaluate for vascular stenosis. * * Fasting a.m. lipid panel with cholesterol 229, LDL 150, HDL 49, triglycerides 141. Agree with starting patient on Lipitor 40 mg daily. * Hemoglobin A1c, B12, folate * Optimize control of blood pressure. * Agree with starting aspirin regimen, as patient does have multiple vascular risk factors, and carotid Dopplers revealed moderate bilateral ICA stenosis. * Telemetry monitoring rule out any arrhythmia * DVT prophylaxis: Heparin 5000 units subcu every 8 hours * Neurology will continue to follow. Thank you for the consult.
[2023-11-21 08:33] VITALS: RESP 17
[2023-11-21 10:02] LABS: African American GFR (CKD) >90 (>60 ml/min/1.73 sqM); Albumin 3.5 g/dL (3.5-5.0); Alkaline Phosphatase 70 U/L (38-126); Anion Gap 4 mmol/L; Blood Urea Nitrogen 15 mg/dL (7-17); Carbon Dioxide 29 mmol/L (22-30); Chloride 106 mmol/L (98-107); Glucose 93 mg/dL (74-99); Non-African American GFR(CKD) >90 (>60 ml/min/1.73 sqM); Sodium 139 mmol/L (137-145); Total Bilirubin 0.8 mg/dL (0.2-1.3); Total Protein 6.4 g/dL (6.3-8.2)
[2023-11-21 10:06] LABS: ALT 26 U/L (4-34); AST 34 U/L (14-36); Magnesium 1.8 mg/dL (1.6-2.3); Potassium 3.7 mmol/L (3.5-5.1)
[2023-11-21 10:16] LABS: HCT 37.6 % (34.0-46.0); HGB 12.9 gm/dL (11.4-16.0); MCH 31.4 pg (25.0-35.0); MCHC 34.4 g/dL (31.0-37.0); MCV 91.4 fL (80.0-100.0); Mean Platelet Volume 7.8; Platelet Count 185 k/uL (150-450); RBC 4.11 m/uL (3.80-5.40); RDW 12.8 % (11.5-15.5); WBC 7.6 k/uL (3.8-10.6)
--- NOTE | 2023-11-21 11:37 | CT ---
EXAMINATION TYPE: CT angio head neck CT DLP: 496.4 mGycm, Automated exposure control for dose reduction was used. DATE OF EXAM: 11/20/2023 9:40 PM COMPARISON: 11/19/2023. CLINICAL INDICATION:Female, 68 years old with history of Vertigo, ICS stenosis per US; PHH, Vertigo. TECHNIQUE: Axially acquired helical CT angiogram of the head and neck was obtained with contrast. Axi al images are supplemented with 3D reconstructions and MIP images which were post-processed at an in dependent workstation. NASCET criteria used. Contrast used:65 cc mL of Isovue 300 with IV Contrast, Oral contrast used: None. FINDINGS: CTA HEAD: No evidence of acute intracranial hemorrhage, mass effect, or midline shift. The ventricles, sulci, a nd cisterns are unremarkable. The visualized portions of the internal carotid arteries, middle cerebral arteries, anterior cerebral arteries, and posterior cerebral arteries are patent. The basilar and vertebral arteries are patent. CTA NECK: Right Carotid System: The common carotid and external carotid arteries are patent. There is less than 25% stenosis at the c arotid bifurcation secondary to calcified/noncalcified plaque. The rest of the internal carotid arter y is patent. Left Carotid System: The common carotid and external carotid arteries are patent. There is less than 25% stenosis at the c arotid bifurcation secondary to calcified/noncalcified plaque. The rest of the internal carotid arter y is patent. Vertebral arteries are patent without evidence hemodynamically significant stenosis. There is a 2-vessel aortic arch. The origins of the great vessels are patent. No evidence of hemodyna mically significant stenosis. IMPRESSION: 1. There is no significant stenosis at the carotid bifurcation. Minimal plaque is identified. Findin gs on ultrasound is felt to be inaccurate with bilateral elevated velocities which may be patient's n ormal velocities. 2. No evidence of dissection of the cervical internal carotid arteries or vertebral arteries or any evidence of significant stenosis at the carotid bifurcations. 3. No evidence of intracranial high-grade stenosis or intracranial aneurysm.
--- NOTE | 2023-11-21 11:49 | MR ---
EXAMINATION TYPE: MR brain wo con DATE OF EXAM: 11/21/2023 7:26 AM CLINICAL INDICATION:Female, 68 years old with history of ataxia; PHH, Ataxia, vertigo. COMPARISON: 11/20/2023. TECHNIQUE: Multi planar, multi sequence imaging was performed through the brain including: T1, T2, In version recovery, Diffusion weighted imaging, and gradient echo imaging. No gadolinium was given. FINDINGS: The mojica-white junctions, ventricular system, basal cisterns appear unremarkable. Midline structures show no abnormality. Diffusion-weighted imaging shows no evidence of restricted diffusion. The suscep tibility weighted images reveals microfocus of blooming artifact in the left thalamus compatible with microhemorrhage. The bone marrow signal is within normal limits. Paranasal sinuses and mastoid air cells: Moderate mucosal thickening of the right maxillary sinus. Visualized orbits: Orbital contents are intact. IMPRESSION: No evidence of intracranial mass or acute/subacute infarct.
[2023-11-21 15:34] VITALS: BP 137/82; PULSE 64; TEMP 97.8
[2023-11-21] MEDS ORDERED: MECLIZINE 25 MG TAB PO PRN (16:28)
--- NOTE | 2023-11-21 16:31 | P.PN ---
Subjective Progress Note Date: 11/21/23 Hospital course: Patient is a very pleasant 68-year-old female with a past medical history of hypertension and hypothyroidism. She presented to the emergency department on 11/19/2023 secondary to dizziness and unsteady gait. She underwent full evaluation in the emergency department. Vital signs upon arrival show blood pressure 123/81, heart rate 66, respiratory rate 18, temp 99.1 F, and SpO2 of 96% on room air. EKG was completed showing normal sinus rhythm at 62 bpm with T wave inversion in lead III otherwise normal findings. CT head was completed negative for acute intracranial process. Patient was admitted under our services with consultation to neurology. Carotid Doppler completed showing 50 to 69% stenosis of bilateral carotid bifurcations. Echocardiogram completed showing a preserved EF of 55 to 60% with no reported obvious intracardiac th rombus or any other significant valvular or structural abnormalities. MRI brain was completed and currently pending radiology read. Physical exam: Vital signs reviewed and stable. General: Nontoxic, no distress and appears stated age. Derm: Skin warm and dry, normal coloration for ethnicity. Head: Atraumatic, normocephalic and symmetric. Eyes: EOMs intact, no lid lag, and anicteric sclera Mouth: no lip lesions, mucus membranes moist Cardiovascular: regular rate and rhythm with normal S1S2, no murmur, positive posterior tibial pulses bilaterally, and cap refill < 2 seconds. Lungs: Respirations even, regular, and unlabored on room air. Lungs CTA bilaterally, no rhonchi, no rales, no wheezing, and no accessory muscle usage. Abdominal: soft, nontender to palpation, no guarding, no appreciable organomegaly Ext: ROM intact. No gross muscle atrophy, no edema, no contractures Neuro: Speech clear, face symmetrical and CN II-XII grossly intact with no noted focal neuro deficits Psych: Alert and oriented to person, place, time, and situation. Appropriate and pleasant affect. Assessment and Plan of Care: Dizziness and unsteady gait, suspect secondary to benign paroxysmal positional vertigo -Neurology following, appreciate recommendations -CT brain was negative for acute intracranial process. -MRI brain without contrast completed and pending results -Echocardiogram completed showing a preserved EF of 55 to 60% with no reported obvious intracardiac thrombus or any other significant valvular or structural abnormalities. -Carotid Doppler completed showing 50 to 69% stenosis of bilateral carotid bifurcations. -Lipid profile showing elevated cholesterol of 229 and LDL of 150.9. -Continue neuro checks every 4 hours and as needed -Continue aspirin 81 mg daily and atorvastatin 40 mg daily. -Order placed for meclizine 25 mg 4 times daily as needed for vertigo. -PT/OT consultedn. -Fall precautions and provide pt with assistance as needed Hypertension -Continue hydrochlorothiazide 50 mg daily. Hypothyroidism -Continue daily medication regimen with levothyroxine 75 mcg daily. Anxiety and depression -Continue sertraline 150 mg daily. Data and imaging reviewed: Vital signs reviewed. Blood pressure 118/77, heart rate 66, respiratory rate 17, temp 98.0 F, and SpO2 of 98% on room air. Morning labs reviewed. CBC and CMP unremarkable. Magnesium normal findings at 1.8. TSH normal findings at 2.170. Urinalysis negative for infection. CODE STATUS: Full code DVT prophylaxis: Heparin Anticipated discharge date: Likely within the next [address]: Home versus subacute rehab Patient was seen independently by Nurse Pracitioner. This document was prepared using [employer] dictation software. Please allow for errors in solar energy installation manager, while rare they do occur. Eloy Lerma NP rendered care for this patient independently, reviewed the findings and plan as documented in the note above. I did not physically speak with or examine the patient on this date. Objective - Vital Signs Vital signs: Vital Signs Temp 98.0 F 11/21/23 08:05 Pulse 66 11/21/23 08:05 Resp 17 11/21/23 08:05 BP 118/77 11/21/23 08:05 Pulse Ox 98 11/21/23 08:05 FiO2 Intake & Output 11/20/23 11/21/23 11/21/23 18:59 06:59 18:59 Other: Voiding Method Toilet # Voids 1 1 - Labs CBC & Chem 7: 11/21/23 10:07 11/21/23 08:48 Labs: Abnormal Lab Results - Last 24 Hours (Table) 11/19/23 Range/Units 18:52 Cholesterol 229.00 H (0.00-200.00) mg/dL LDL Cholesterol, Calc 150.9 H (0.0-131.0) mg/dL
--- NOTE | 2023-11-21 18:20 | P.DS ---
Providers Date of admission: 11/19/23 20:25 Expected date of discharge: 11/21/23 Attending physician: Rena Contreras MD Consults: 11/19/23 20:25 Consult Physician Routine Consulting Provider: Kar Hsieh Consult Reason/Comments: cva Do you want consulting provider notified?: Yes Primary care physician: [facility] Course: Discharge Diagnosis: Dizziness and unsteady gait, secondary to benign paroxysmal positional vertigo. Continue meclizine 25 mg 4 times daily as needed for vertigo. Follow-up with PCP in 2 days. Hypertension Continue hydrochlorothiazide 50 mg daily. Hyperlipidemia. Lipid profile showing elevated cholesterol of 229 and LDL of 150.9. Continue atorvastatin 40 mg daily. Hypothyroidism Continue daily medication regimen with levothyroxine 75 mcg daily. Anxiety and depression Continue sertraline 150 mg daily. Hospital Course: Patient is a very pleasant 68-year-old female with a past medical history of hypertension and hypothyroidism. She presented to the emergency department on 11/19/2023 secondary to dizziness and unsteady gait. She underwent full evaluation in the emergency department. Vital signs upon arrival show blood pressure 123/81, heart rate 66, respiratory rate 18, temp 99.1 F, and SpO2 of 96% on room air. EKG was completed showing normal sinus rhythm at 62 bpm with T wave inversion in lead III otherwise normal findings. CT head was completed negative for acute intracranial process. Patient was admitted under our services with consultation to neurology. Carotid Doppler completed showing 50 to 69% stenosis of bilateral carotid bifurcations. Echocardiogram completed showing a preserved EF of 55 to 60% with no reported obvious intracardiac thrombus or any other significant valvular or structural abnormalities. MRI brain was completed negative for acute intracranial process showing no evidence of intracranial mass or acute/subacute infarct. Patient currently free from any complaints at this time. Previously experienced vertigo and unsteady gait has resolved. Patient cleared from neurology perspective for discharge home. Me dically, patient is stable for discharge and to follow-up with PCP in 1 to 2 days. Prescription sent for meclizine 25 mg 4 times daily as needed for vertigo and atorvastatin 40 mg daily secondary to elevated total cholesterol and LDL. Physical exam: Vital signs reviewed and stable. General: Nontoxic, no distress and appears stated age. Derm: Skin warm and dry, normal coloration for ethnicity. Head: Atraumatic, normocephalic and symmetric. Eyes: EOMs intact, no lid lag, and anicteric sclera Mouth: no lip lesions, mucus membranes moist Cardiovascular: regular rate and rhythm with normal S1S2, no murmur, positive posterior tibial pulses bilaterally, and cap refill < 2 seconds. Lungs: Respirations even, regular, and unlabored on room air. Lungs CTA bilaterally, no rhonchi, no rales, no wheezing, and no accessory muscle usage. Abdominal: soft, nontender to palpation, no guarding, no appreciable organomegaly Ext: ROM intact. No gross muscle atrophy, no edema, no contractures Neuro: Speech clear, face symmetrical and CN II-XII grossly intact with no noted focal neuro deficits Psych: Alert and oriented to person, place, time, and situation. Appropriate and pleasant affect. A total of 31 minutes of time were spent preparing this complex discharge summary. Pt was discharged on 11/21/2023 at 6:14 PM. Patient was seen independently by Nurse Practitioner. This document was prepared using [employer] dictation software. Please allow for errors in stock analyst while rare they do occur. Patient Condition at Discharge: Stable Plan - Discharge Summary Discharge Rx Participant: Yes New Discharge Prescriptions: New Meclizine [Antivert] 25 mg PO QID PRN #60 tab PRN Reason: Vertigo Aspirin 81 mg PO DAILY 30 Days #30 tab Atorvastatin [Lipitor] 40 mg PO DAILY 30 Days #30 tab Continue hydroCHLOROthiazide [Hydrodiuril] 50 mg PO DAILY Sertraline HCl [Zoloft] 150 mg PO DAILY Levothyroxine Sodium [Synthroid] 75 mcg PO DAILY Discharge Medication List hydroCHLOROthiazide [Hydrodiuril] 50 mg PO DAILY 03/23/16 [History] Sertraline HCl [Zoloft] 150 mg PO DAILY 03/24/21 [History] Levothyroxine Sodium [Synthroid] 75 mcg PO DAILY 11/19/23 [History] Aspirin 81 mg PO DAILY 30 Days #30 tab 11/21/23 [Rx] Atorvastatin [Lipitor] 40 mg PO DAILY 30 Days #30 tab 11/21/23 [Rx] Meclizine [Antivert] 25 mg PO QID PRN #60 tab 11/21/23 [Rx] Follow up Appointment(s)/Referral(s): Osvaldo Vann MD [Primary Care Provider] - 1-2 days Patient Instructions/Handouts: Vertigo (DC) Activity/Diet/Wound Care/Special Instructions: Activity: As tolerated. Take breaks as needed. Diet: Heart healthy and carb consistent diet. Avoid salts, or foods with hidden salts such as canned or boxed foods and frozen dinners. Extra salt makes your heart work harder and traps the fluid in your body for longer. Special Instructions: Take all of your medications as directed and remember to keep all of your doctor's appointments and follow-up as needed. Thank you for allowing us to participate in your care, it was truly a pleasure having you for our patient!!! Discharge Disposition: HOME SELF-CARE
[2023-11-22] MEDS ORDERED: ASPIRIN 81 MG PO SCH (09:00)
--- NOTE | 2023-11-22 11:34 | P.PN ---
Subjective Progress Note Date: 11/21/23 Patient was seen for a follow-up. Patient is laying comfortably in the bed. Patient states her dizziness is gone. Offers no new complaints. No focal symptoms. Objective - Vital Signs Vital signs: Vital Signs Temp 97.8 F 11/21/23 15:16 Pulse 64 11/21/23 15:16 Resp 17 11/21/23 15:16 BP 137/82 11/21/23 15:16 Pulse Ox 95 11/21/23 15:16 FiO2 Intake & Output 11/20/23 11/21/23 11/21/23 18:59 06:59 18:59 Intake Total 480 Balance 480 Intake: Oral 480 Other: Voiding Method Toilet Toilet # Voids 1 1 3 - Exam Nonfocal. Patient does have decreased hearing for finger rubbing. - Labs CBC & Chem 7: 11/21/23 10:07 11/21/23 08:48 Assessment and Plan Assessment: * Intermittent vertigo/dizziness, probable due to peripheral vestibular dysfunction. Probable BPPV. Patient has some fullness in the left ear, chronic mild hearing loss, likely contributing to peripheral vestibular dysfunction. Patient has no focal symptoms. Examination is nonfocal. * Hypertension * Hyperlipidemia * Lactic acidosis * Chronic right maxillary sinus disease, as it was present in previous CTA from 06/24/2022 as well. Plan: * MRI of the brain revealed no evidence of acute/subacute infarct or intracranial mass. I personally reviewed MRI agree with the findings. * 2-D echo revealed normal left ventricular systolic function, with EF estimated at 55 to 60%. Normal left ventricular size with no obvious regional wall motion abnormalities. No obvious intracardiac thrombus. Normal left atrial size. * Carotid Doppler, revealed 50 to 69% stenosis of bilateral carotid bifurcations by peak systolic velocity. Antegrade flow in both vertebral arteries. * CTA of head and neck revealed no significant stenosis at the carotid bifurcation. Minimal plaque is identified. Findings on ultrasound is felt to be inaccurate with bilateral elevated velocities which may be patient's normal velocities. No evidence of dissection of the cervical internal carotid arteries or vertebral arteries or any evidence of significant stenosis at the carotid bifurcations. No evidence of intracranial high-grade stenosis or intracranial aneurysm. * Fasting a.m. lipid panel with cholesterol 229, LDL 150, HDL 49, triglycerides 141. Agree with starting patient on Lipitor 40 mg daily. * Hemoglobin A1c 6.2, B12 343, folate 16.90, TSH 2.17 * Optimize control of blood pressure. Healthy lifestyles, dietary adjustment for borderline A1c. * CTA did not reveal any significant stenosis. Patient's dizziness likely from peripheral vestibular dysfunction. Regarding aspirin 81 mg, patient recommended to continue taking it and also recommended to discuss with primary physician, if need to be taken long-term. * Her vertigo likely from peripheral vascular dysfunction. If symptoms recur, then recommend patient to follow-up with the ENT specialist.
== END 2023-11-21 19:23 | disposition home or self-care (01) | DRG 149 ==
LOC: EC 16:48 → 3NCARDOBS 20:25 → 3SCARD 20:54
PROVIDERS: ADMIT Internal Medicine; ATTEND Internal Medicine
DX: H81.23 Vestibular neuronitis, bilateral (principal); E87.20 Acidosis, unspecified; I10 Essential (primary) hypertension; E03.9 Hypothyroidism, unspecified; F32.A Depression, unspecified; I65.23 Occlusion and stenosis of bilateral carotid arteries; F41.9 Anxiety disorder, unspecified; R27.0 Ataxia, unspecified; H81.10 Benign paroxysmal vertigo, unspecified ear; E87.6 Hypokalemia; J32.0 Chronic maxillary sinusitis; E78.00 Pure hypercholesterolemia, unspecified; H83.3X3 Noise effects on inner ear, bilateral; Z88.5 Allergy status to narcotic agent; Z88.0 Allergy status to penicillin; Z79.890 Hormone replacement therapy; Z79.899 Other long term (current) drug therapy
CPT/HCPCS: 36415; 70450; 70496; 70498; 70551; 80053; 80061; 81003; 82607; 82746; 83036; 83605; 83735; 84100; 84443; 84484; 85025; 85027; 93005; 93306; 93880; 96361; 96372; 96374; 96375; 99285

== ENCOUNTER → 2023-12-20 | Outpatient (CLI) | payer BC ==
--- NOTE | 2023-12-21 13:37 | MM ---
Reason for Exam: Screening (asymptomatic). Last mammogram was performed 1 year(s) and 1 month(s) ago. Patient History: Menarche at age 10. Patient has no children. Left ovary removed at age 52. Right ovary removed at age 52. Hysterectomy at age 52. Postmenopausal. Hormonal Contraceptives, starting at age 18 for 8 years. Risk Values: Teresa 5 year model risk: 2.1%. NCI Lifetime model risk: 6.7%. Prior Study Comparison: 12/12/2017 Bilateral Diagnostic Mammogram, [facility]. 11/06/2019 Bilateral Screening Mammogram, [facility]. 12/15/2022 Bilateral MG 3D screening mammo w/cad, [facility]. Tissue Density: There are scattered areas of fibroglandular density. Findings: Analyzed By CAD. Right breast: There is no suspicious group of microcalcifications or new suspicious mass. Left breast: There is no suspicious group of microcalcifications or new suspicious mass. Overall Assessment: Negative, BI-RAD 1 Management: Screening Mammogram of both breasts in [address] [facility] will attempt to contact patient to return for supplemental views and ultrasound if indicated. Patient should continue monthly self-breast exams. A clinical breast exam by your physician is recommended on an annual basis. This exam should not preclude additional follow-up of suspicious palpable abnormalities. Note on Teresa scores and lifetime risk: 1. A Teresa score greater than 3% is considered moderate risk. If this is the case, consider specialist referral to assess eligibility for a risk reducing agent. 2. If overall lifetime risk for the development of breast cancer is 20% or higher, the patient may qualify for future screening with alternating mammogram and breast MRI. Electronically signed and approved by: Darius Garcia DO
== END | disposition home or self-care (01) ==
LOC: RADMAMWWP 15:16
PROVIDERS: ATTEND Family Medicine
DX: Z12.31 Encounter for screening mammogram for malignant neoplasm of breast (principal); Z78.0 Asymptomatic menopausal state
CPT/HCPCS: 77063; 77067

== ENCOUNTER → 2024-04-25 | Outpatient (CLI) | payer BC ==
--- NOTE | 2024-06-07 11:04 | PN ---
PROGRESS NOTE DATE OF SERVICE: 04/25/2024 Followup visit in Sleep Center. This is first visit after the patient received CPAP unit. The patient was able to use CPAP equipment, sleeps well on CPAP. [place] Sleepiness Scale increased to 14. I checked CPAP unit, AutoPAP 5 to 10 cm of water, average 10 cm of water, usage nights more than 4 hours, every 6.7 hours. Leak increased to 34 L/minute. Apnea- hypopnea index increased to 9.0. The patient complains of some dryness in the mouth. MEDICATIONS: 1. Levothyroxine. 2. Hydrochlorothiazide. 3. Ativan. PHYSICAL EXAMINATION: GENERAL: The patient is in no distress. VITAL SIGNS: BP 153/83, HR 64, RR 16, weight 202.2 pounds, temperature 98.6, oxygen saturation at room air 94%. HEENT: PERRLA, EOMI. NECK: Supple, no JVD. LUNGS: Clear. HEART: S1, S2 regular. ABDOMEN: Obese, soft, nontender. EXTREMITIES: No edema. BANKING TEACHER: No focal deficit. IMPRESSION: 1. Obstructive sleep apnea-hypopnea syndrome, good compliance with treatment, benefitting from treatment, but apnea-hypopnea index still increased. 2. Hypertension. 3. Obesity. 4. Hypothyroidism. 5. Anxiety. 6. Depression. PLAN: 1. I changed pressure in CPAP unit to the range 5 to 12 cm of water. 2. The patient will continue to use CPAP equipment every night for the whole night. 3. Losing weight. 4. Sleep hygiene with time in bed for at least 8 hours. 5. No driving if feeling sleepiness. 6. Followup visit in 6 months or earlier if the patient has any problems. Thank you very much for allowing me to participate in the management of your patient. MMODL / IJN: [id number] /
== END ==
LOC: 3 N SLEEP 14:00
PROVIDERS: ATTEND Internal Medicine
CPT/HCPCS: 99212

== ENCOUNTER → 2024-07-04 | Outpatient (CLI) | payer MEDICARE ==
[2024-07-04 12:01] VITALS: BP 148/88; PULSE 64; RESP 16; TEMP 98.4
--- NOTE | 2024-07-04 12:28 | P.PROGSL ---
Subjective DATE: 07/04/2024 FOLLOW UP VISIT. Patient with obstructive sleep apnea hypopnea syndrome return to sleep center for follow-up visit. Information from previous visit have been reviewed. Patient is using PAP equipment every night for the whole night, getting PAP supplies in time. The patient does not have significant problems with the mask, PAP unit and humidification. [place] sleepiness scale is 3, which is normal. I checked information from PAP unit. PAP unit pressure 5-12, average 11.6 cm H2O. Usage is 90% for more then 4 hours, average 6.9 hours per night. Leak is increased to 41 l/m. Apnea Hypopnea Index is 4.6, which is normal. MEDICATIONS have been reviewed, please see below. During physical exam: GENERAL: A pleasant patient without any distress. VITAL SIGNS: Please see below, weight is 203.1 lbs. HEENT: PERRLA, EOMI.low position of soft palate, Mallapati 3. NECK: Supple. No JVD. LUNGS: Clear to percussion and to auscultation. Good air exchange. No wheezing or rhonchi. HEART: S1, S2 regular. ABDOMEN: Soft and nontender.[] EXTREMITIES: No clubbing or cyanosis. EDI DEVELOPER: Awake, alert, and oriented x3. No focal deficit. Impressions: 1. Obstructive sleep apnea-hypopnea syndrome. Patient demonstrated great compliance with treatment, benefiting from treatment. 2. Mild obesity. 3. Hypertension. 4. Anxiety. 5. Depression. 6. Hypothyroidism. I slightly increased range of the pressure in AutoPAP unit to 5-13 cm of water. Plan: 1. Continue using PAP equipment every night for the whole night. Patient will try nasal mask, if necessary with chinstrap. 2. Sleep hygiene with regular time in bed for at least 7.5-8 hours 3. PAP unit should stay lower then position of the head. 4. Advised patient to remove all remaining water from humidifier canister daily and make it dry after each usage. Refill canister with fresh distilled water before each usage. 5. Watching weight. 6. Precautions related to driving. No driving if feel any sleepiness. 7. I will maintain prescription for PAP supplies including mask, tube, filters. 8. Follow up visit in 6-8 months or earlier if patient has any problems. Thank you very much for allowing me to participate in the management of your patient. Wally Bruner MD, PhD, FAASM. Diplomat of [place] [employer], Sleep Medicine Board by [place] [employer] Officer of [facility] [place] Objective - Vital Signs Vital Signs: Vital Signs Temp 98.4 F 07/04/24 11:59 Pulse 64 07/04/24 11:59 Resp 16 07/04/24 11:59 BP 148/88 07/04/24 11:59 Pulse Ox 94 L 07/04/24 11:59 FiO2 Intake & Output 07/03/24 07/04/24 07/04/24 18:59 06:59 18:59 Weight 92.249 kg Home Medications: Home Medications Medication Instructions Recorded Confirmed Type hydroCHLOROthiazide [Hydrodiuril] 50 mg PO DAILY 03/23/16 07/04/24 History Sertraline HCl [Zoloft] 150 mg PO DAILY 03/24/21 07/04/24 History Levothyroxine Sodium [Synthroid] 75 mcg PO DAILY 11/19/23 07/04/24 History Aspirin 81 mg PO DAILY 30 Days #30 tab 11/21/23 07/04/24 Rx Atorvastatin [Lipitor] 40 mg PO DAILY 30 Days #30 tab 11/21/23 07/04/24 Rx Meclizine [Antivert] 25 mg PO QID PRN #60 tab 11/21/23 Rx Magnesium Oxide [[place]] 500 mg PO DAILY 07/04/24 07/04/24 History
== END ==
LOC: 3 N SLEEP 11:32
PROVIDERS: ATTEND Internal Medicine
CPT/HCPCS: 99212